=== PATIENT | female | born 2000 | race Hispanic/Latino ===

== ENCOUNTER → 2022-01-30 17:04 | Outpatient (CLI) | payer OTHER, MEDICAID, SELFPAY ==
[2022-01-31 13:24] LABS: Varicella IgG Antibody 312 index (Immune >165)
[2022-02-02 13:10] LABS: AFP Value 59.7 ng/mL (.); Gest Age on Col Date 18.4 weeks (.); Gestational Age EDD (.); Insulin Dep Diabetes No (.); OSBR Risk 1IN 7137 (.); Results Report (.); Test Results *Screen Negative* (.)
== END ==
PROVIDERS: Referring Provider Obstetrics & Gynecology; Visit Provider Obstetrics & Gynecology
DX: Z34.02 Encounter for supervision of normal first pregnancy, second trimester (principal); Z3A.18 18 weeks gestation of pregnancy
CPT/HCPCS: 36415; 82105; 86787

== ENCOUNTER → 2022-02-13 10:44 | Outpatient (CLI) | payer OTHER, MEDICAID, SELFPAY ==
--- NOTE | 2022-02-13 10:46 | DI.US.S_ITS ---
PROCEDURE: US OB >= 14 WEEKS FETUS INDICATIONS: 20 WEEK ANATOMY SCAN OUTSIDE/PRIOR DATING DATA: Last menstrual period (LMP): Unknown LMP-based estimated date of delivery (DAX): Unknown. First dating scan (date and location): 02/13/2022. Estimated date of delivery (DAX) from first dating scan: 06/29/2022. TECHNIQUE: Real-time scanning was performed of the fetus, with image documentation and biometric measurements. Endovaginal scanning: Non COMPARISON: [facility], , US OB >= 14 WEEKS FETUS, 01/02/2022, 11:33. FINDINGS: General: A single living intrauterine gestation is present. Presentation: Cephalic. Placenta: Placental position is posterior , without previa. Amniotic fluid index: 13.4 cm, normal range is 5-24 cm. heart rate: 152 beats per minute. Maternal cervical canal: 4.4 cm long. Normal lower limit is 2.5 cm. biometrics: Biparietal diameter: 5.0 cm, 21 week 0 day Head circumference: 18.4 cm, 20 week 5 day Abdominal circumference: 15.2 cm, 20 week 3 day Femur length: 3.3 cm, 20 week 2 day Clinically estimated gestational age: Unknown Composite gestational age from present scan: 20 week 4 day Estimated weight and percentile: 352 g Anatomic survey: Neuro: Ventricles are non-dilated at less than 10 mm. Cisterna magna is normal at 3-11 mm. Cerebellum is normal in size and morphology. Nuchal skin fold: Normal at less than 6 mm between 14-21 weeks gestational age. Face: Not well visualized Spine: No evidence for spina bifida. Heart: 4-chambered heart is present, with normal ventricular outflow tracts. Diaphragm: Diaphragm is intact. Stomach: Left-sided stomach is present. Kidneys: No hydronephrosis. Normal is less than 5 mm in 2nd trimester, less than 7 mm in 3rd trimester. Cord: 3-vessel cord has orthotopic insertion. Bladder: Normal in size. Extremities: All 4 extremities identified. IMPRESSION: Single live intrauterine consistent with a 20 week 4 day gestation. face, nose and lips not well visualized due to patient positioning. Approved by: Kaushal Infante M.D. on 02/13/2022 at 16:49
== END ==
PROVIDERS: Referring Provider Obstetrics & Gynecology; Visit Provider Obstetrics & Gynecology
DX: Z34.02 Encounter for supervision of normal first pregnancy, second trimester (principal); Z3A.20 20 weeks gestation of pregnancy
CPT/HCPCS: 76811

== ENCOUNTER → 2022-02-27 07:21 | Outpatient (CLI) | payer OTHER, MEDICAID, SELFPAY | PROVIDERS: Visit Provider Obstetrics & Gynecology | DX: Z34.00 Encounter for supervision of normal first pregnancy, unspecified trimester (principal) | CPT/HCPCS: 87086 ==

== ENCOUNTER → 2022-03-10 07:17 | Outpatient (CLI) | payer OTHER, MEDICAID, SELFPAY ==
--- NOTE | 2022-03-10 07:19 | DI.US.S_ITS ---
PROCEDURE: US OB FOLLOW UP INDICATIONS: F/U Face OUTSIDE/PRIOR DATING DATA: Last menstrual period (LMP): Unknown LMP-based estimated date of delivery (DAX): Unknown. First dating scan (date and location): 02/13/2022. Estimated date of delivery (DAX) from first dating scan: 20 weeks 4 days. The calculations are made using the ultrasound DAX of 06/29/2022. TECHNIQUE: Real-time scanning was performed of the fetus, with image documentation and biometric measurements. COMPARISON: None. FINDINGS: General: A single living intrauterine gestation is present. Presentation: Cephalic. Placenta: Placental position is posterior , without previa. Amniotic fluid index: 11.6 cm, normal range is 5-24 cm. heart rate: 165 beats per minute. Maternal cervical canal: 4.0 cm long. Normal lower limit is 2.5 cm. biometrics: Biparietal diameter: 6.5 cm. 26 weeks 1 day Head circumference: 22.9 cm. 24 weeks 6 days Abdominal circumference: 19.5 cm. 24 weeks 1 day Femur length: 4.3 cm. 24 weeks 1 day Gestational Age by initial ultrasound: 24 weeks 0 days Composite gestational age from present scan: 24 weeks 6 days Estimated weight and percentile: 687 g. 58th percentile. Anatomic survey: Face: Nose and lips, facial profile are normal. Heart: 4-chambered heart is present Stomach: Left-sided stomach is present. IMPRESSION: 1. Completion of anatomy with normal anatomy demonstrated. 2. Estimated gestational age 20 weeks 4 days from initial scan. We strive to produce accurate, complete, and clear reports of imaging services. To assist us in improving patient care, this report was composed using standard report templates and voice recognition software. Therefore, it may contain abnormal punctuation, insertions and/or omissions. Occasional wrong-word or sound-alike substitutions may occur. Though we review the report and make efforts to correct it, we do recommend that the report be read carefully in proper context to recognize any text inaccuracies. Dictated by: Ari Clement M.D. on 03/10/2022 at 8:28 Approved by: Ari Clement M.D. on 03/10/2022 at 8:32
== END ==
PROVIDERS: PCP Internal Medicine; Referring Provider Obstetrics & Gynecology; Visit Provider Obstetrics & Gynecology
DX: Z3A.24 24 weeks gestation of pregnancy; Z36.2 Encounter for other antenatal screening follow-up
CPT/HCPCS: 76816

== ENCOUNTER → 2022-04-07 08:25 | Outpatient (CLI) | payer OTHER, MEDICAID, SELFPAY ==
[2022-04-07 11:28] LABS: Hematocrit 37.2 % (36-46); Hemoglobin 12.6 g/dL (12.0-16.0)
[2022-04-07 11:33] LABS: GTT (PREG) 1 Hour PP 50gm Dose 122 mg/dL (76-139)
== END ==
PROVIDERS: PCP Internal Medicine; Referring Provider Obstetrics & Gynecology; Visit Provider Obstetrics & Gynecology
DX: Z34.02 Encounter for supervision of normal first pregnancy, second trimester (principal); Z3A.26 26 weeks gestation of pregnancy
CPT/HCPCS: 36415; 82950; 85014; 85018

== ENCOUNTER → 2022-05-28 15:10 | Outpatient (CLI) | payer OTHER, MEDICAID, SELFPAY ==
[2022-05-28 16:52] LABS: Add Manual Diff / Slide Review NO; Basophils Absolute Auto 0 /uL (0-100); Basophils Percent Auto 0.5 % (0-2); Eosinophils Absolute Auto 100 /uL (0-450); Eosinophils Percent Auto 0.8 % (2-4); Hematocrit 37.2 % (36-46); Hemoglobin 12.5 g/dL (12.0-16.0); Lymphocytes Absolute Auto 1700 /uL (1100-4500); Lymphocytes Percent Auto 19.3 % (25-40); Mean Corpuscular HGB Conc 33.8 % (30-36); Mean Corpuscular Hemoglobin 29.4 PG (26-34); Mean Corpuscular Volume 87.1 fL (80-100); Monocytes Absolute Auto 700 /uL (0-900); Neutrophils Absolute Auto 6200 /uL (1500-7000); Neutrophils Percent Auto 71.4 % (50-75); Platelet Count 199 X10^3/uL (150-400); Red Blood Cell Count 4.26 X10^6/uL (4.0-5.2); Red Cell Distribution Width 13.8 % (11.6-14.8); White Blood Cell Count 8.7 X10^3/uL (4.5-11.0)
[2022-05-28 17:17] LABS: Alanine Aminotransferase 15 IU/L (<35); Aspartate Aminotransferase 27 IU/L (14-36); BUN Creatinine Ratio 15.6 (6-22); Blood Urea Nitrogen 7 mg/dL (7-17); Estimated Glomerular Filt Rate > 60 mL/min (>60); Uric Acid 4.8 mg/dL (2.5-6.2)
[2022-05-28 19:00] LABS: Protein (Total) Urine Random 11 mg/dL (0-12); Protein Creatinine Ratio Urine 0.17 GRAM/24H
== END ==
PROVIDERS: PCP Internal Medicine; Referring Provider Obstetrics & Gynecology; Visit Provider Obstetrics & Gynecology
DX: O16.3 Unspecified maternal hypertension, third trimester (principal); O99.891 Other specified diseases and conditions complicating pregnancy; R82.998 Other abnormal findings in urine; Z3A.35 35 weeks gestation of pregnancy
CPT/HCPCS: 36415; 82565; 82570; 84156; 84450; 84460; 84520; 84550; 85025; 87086

== ENCOUNTER 2022-05-28 16:07 | Observation (INO) | payer OTHER, MEDICAID, SELFPAY ==
--- NOTE | 2022-05-28 18:07 | P.TNLD_ITS ---
Visit Information Visit Information Date of evaluation: 05/28/22 Primary OB Provider: Heriberto Arambula On-call OB Provider: Fidelia Brandon Reason for Evaluation: Yes non-stress test and Yes other Comments/Additional reasons for admission: 21 yo G1 sent from the office for a nonstress test due to mildly elevated BP in the office at her routine 35 week visit. EGA 35wk2d. Initial elevated DBP. BP 114/90, then repeats: 138/84, 122/82, 142/88. Her normal BPS are 100s-110's/60s. She feels well, not having any symptoms. Denies headache, scotomata, vision changes, persistent nausea or upper abdominal pain. She did have some nausea last week which resolved. She has noted some pedal edema. Not noting any and edema. Office urinalysis: Negative protein. Urine protein/creatinine ratio from office is pending. Vital Signs Vital Signs: BP here 135/65, 116/67, 106/67. [facility] Medical History (Updated 05/28/22 @ 21:34 by Fidelia Brandon MD) Allergic rhinitis Anxiety Asthma Depression Migraine UTI (urinary tract infection) Surgical History (Updated 01/14/22 @ 19:11 by Keeley Lancaster) Anesthesia History of appendectomy Family History (Updated 12/22/21 @ 10:09 by Lilly Gates RN) Grandmother Diabetes mellitus Social History marital status: unmarried,living together (engaged) number of children: 0 household members: significant other and family (mother, step father and sibs) lives independently: Yes housing: other (Trailer) pets and animals: No education level: college (1st year) occupational status: employed and student current occupational exposures/hazards: No special luis f needs: No seatbelt use: always water heater temp set < 120 deg: Yes (will check) working smoke detector in home: Yes fire extinguisher in home: No carbon monox detector in home: No firearms in home: No do you feel safe at home: Yes Smoking Status: Never smoker second hand exposure: No alcohol intake: never substance use type: does not use during the past year weight has: remained stable well-balanced diet: about half the time (trying to improve, low weight gain) daily servings fruits/ve-1 caffeine: Yes (limit of 200mg) Type(s) of exercise: walking Exam Vital Signs (past 8 hours): BP here 135/65, 116/67, 106/67 Narrative Exam Narrative: General: Well-appearing female in no acute distress Abdomen: Gravid, nontender. No right upper quadrant or epigastric tenderness. Extremities: Mild pedal edema. No noted hand finger edema. DTR: Patellar reflex 1+ Evaluation Evaluation Baseline heart rate: 135 Variability: Moderate (11-25) monitor accelerations: Present Monitor Decelerations: Absent Category of Tracing: Reactive Non-invasive Membranes Rupture Test: negative Diagnosis, Plan/Disposition Final Diagnosis (1) Elevated BP without diagnosis of hypertension: Status: Acute Plan/Disposition Plan: 21 yo G1 @35wk2d with an initial elevated DBP of 90 in office today, 112/90. See HPI. After few repeat BP's, she then had an elevated systolic BP 142, she was getting nervous at that time, since also called back to the office to rechec k her BP. Initial SBP here is mildly elevated for her, BP 135/65, then normal BP's 106- 116/67. -Sent here for NST. NST is reactive and reassuring. Preeclamptic labs are normal: Platelets 199, creatinine 0.45, AST and ALT normal. -Urine protein/creatinine ratio pending urine sample collection from office. She had just voided here so would be a while before she could go again. Will not have her wait for that result since will not change management administrator overnight. Plan: Follow up in office on or Saturday, 3-4 days for a BP check. Call earlier as needed. OB Disposition: home
== END 2022-05-28 18:02 | disposition home or self-care (01) ==
LOC: LABOR 16:10
PROVIDERS: Admitting Provider Obstetrics & Gynecology; PCP Internal Medicine; Referring Provider Obstetrics & Gynecology; Visit Provider Obstetrics & Gynecology
DX: O16.3 Unspecified maternal hypertension, third trimester (principal); O99.891 Other specified diseases and conditions complicating pregnancy; R82.998 Other abnormal findings in urine; Z3A.35 35 weeks gestation of pregnancy
CPT/HCPCS: 36415; 59025; 59050; 82565; 82570; 84156; 84450; 84460; 84520; 84550; 85025; 87086; G0378; G0379

== ENCOUNTER 2022-05-30 12:59 | Outpatient (CLI) | payer OTHER, MEDICAID, SELFPAY | END 2022-05-30 13:35 | disposition home or self-care (01) | LOC: LABOR 13:08 → OB 06-04 11:45 | PROVIDERS: PCP Internal Medicine; Referring Provider Obstetrics & Gynecology; Visit Provider Obstetrics & Gynecology | DX: O47.03 False labor before 37 completed weeks of gestation, third trimester (principal); Z3A.35 35 weeks gestation of pregnancy; Z34.03 Encounter for supervision of normal first pregnancy, third trimester | CPT/HCPCS: 59025; 87653; G0378; G0379 ==

== ENCOUNTER → 2022-05-30 14:19 | Outpatient (CLI) | payer OTHER, MEDICAID, SELFPAY ==
[2022-05-31 16:56] LABS: Strep Grp B PCR POS for Grp B Strep
== END ==
PROVIDERS: PCP Internal Medicine; Visit Provider Obstetrics & Gynecology
DX: Z34.03 Encounter for supervision of normal first pregnancy, third trimester (principal); Z3A.35 35 weeks gestation of pregnancy
CPT/HCPCS: 87653

== ENCOUNTER → 2022-06-01 15:42 | Outpatient (CLI) | payer OTHER, MEDICAID, SELFPAY ==
[2022-06-01 16:35] LABS: Protein (Total) Urine Random 14 mg/dL (0-12); Protein Creatinine Ratio Urine 0.04 GRAM/24H
[2022-06-01 17:31] LABS: Add Manual Diff / Slide Review NO; Basophils Absolute Auto 0 /uL (0-100); Basophils Percent Auto 0.3 % (0-2); Eosinophils Absolute Auto 100 /uL (0-450); Eosinophils Percent Auto 1.2 % (2-4); Hematocrit 34.8 % (36-46); Hemoglobin 12.1 g/dL (12.0-16.0); Lymphocytes Absolute Auto 1500 /uL (1100-4500); Lymphocytes Percent Auto 22.4 % (25-40); Mean Corpuscular HGB Conc 34.8 % (30-36); Mean Corpuscular Volume 86.3 fL (80-100); Monocytes Absolute Auto 500 /uL (0-900); Monocytes Percent Auto 8.2 % (3-14); Neutrophils Absolute Auto 4500 /uL (1500-7000); Neutrophils Percent Auto 67.9 % (50-75); Platelet Count 184 X10^3/uL (150-400); Red Blood Cell Count 4.03 X10^6/uL (4.0-5.2); Red Cell Distribution Width 13.8 % (11.6-14.8); White Blood Cell Count 6.6 X10^3/uL (4.5-11.0)
[2022-06-01 17:45] LABS: Alanine Aminotransferase 19 IU/L (<35); Albumin 3.1 g/dL (3.5-5.0); Alkaline Phosphatase 196 U/L (38-126); Aspartate Aminotransferase 28 IU/L (14-36); BUN Creatinine Ratio 13.2 (6-22); Bilirubin Total 0.2 mg/dL (0.2-1.3); Blood Urea Nitrogen 7 mg/dL (7-17); Calcium 8.7 mg/dL (8.4-10.2); Carbon Dioxide 20 mmol/L (22-32); Chloride 103 mmol/L (98-107); Estimated Glomerular Filt Rate > 60 mL/min (>60); Glucose 110 mg/dL (70-100); HEMOLYSIS < 15 (0-50); Potassium 3.8 mmol/L (3.4-5.1); Sodium 135 mmol/L (137-145); Total Protein 6.1 g/dL (6.3-8.2); Uric Acid 5.5 mg/dL (2.5-6.2)
== END ==
PROVIDERS: PCP Internal Medicine; Referring Provider Obstetrics & Gynecology; Visit Provider Obstetrics & Gynecology
DX: O13.9 Gestational [pregnancy-induced] hypertension without significant proteinuria, unspecified trimester (principal)
CPT/HCPCS: 36415; 80053; 82570; 84156; 84550; 85025; 87086

== ENCOUNTER → 2022-06-07 12:30 | Outpatient (CLI) | payer OTHER, MEDICAID, SELFPAY ==
[2022-06-07 17:36] LABS: Creatinine Urine Random 176.5 mg/dL; Protein (Total) Urine Random 189 mg/dL (0-12); Protein Creatinine Ratio Urine 1.07 GRAM/24H
== END ==
PROVIDERS: PCP Internal Medicine; Visit Provider Physician Assistant Medical
DX: Z34.03 Encounter for supervision of normal first pregnancy, third trimester (principal); R80.9 Proteinuria, unspecified; Z3A.36 36 weeks gestation of pregnancy
CPT/HCPCS: 82570; 84156

== ENCOUNTER 2022-06-09 16:34 | Inpatient (IN) | payer OTHER, MEDICAID, SELFPAY ==
[2022-06-09 16:40] VITALS: BP 146/91
[2022-06-09 17:33] LABS: Add Manual Diff / Slide Review NO; Basophils Absolute Auto 0 /uL (0-100); Basophils Percent Auto 0.3 % (0-2); Eosinophils Absolute Auto 100 /uL (0-450); Eosinophils Percent Auto 1.2 % (2-4); Hematocrit 34.1 % (36-46); Hemoglobin 11.7 g/dL (12.0-16.0); Lymphocytes Absolute Auto 1900 /uL (1100-4500); Lymphocytes Percent Auto 24.3 % (25-40); Mean Corpuscular HGB Conc 34.2 % (30-36); Mean Corpuscular Hemoglobin 29.7 PG (26-34); Mean Corpuscular Volume 86.9 fL (80-100); Monocytes Absolute Auto 600 /uL (0-900); Monocytes Percent Auto 7.3 % (3-14); Neutrophils Absolute Auto 5100 /uL (1500-7000); Neutrophils Percent Auto 66.9 % (50-75); Platelet Count 162 X10^3/uL (150-400); Red Blood Cell Count 3.92 X10^6/uL (4.0-5.2); Red Cell Distribution Width 14.3 % (11.6-14.8); White Blood Cell Count 7.7 X10^3/uL (4.5-11.0)
[2022-06-09 17:41] LABS: Alanine Aminotransferase 17 IU/L (<35); Albumin 2.8 g/dL (3.5-5.0); Alkaline Phosphatase 184 U/L (38-126); Aspartate Aminotransferase 24 IU/L (14-36); Bilirubin Total 0.2 mg/dL (0.2-1.3); Bilirubin Unconjugated 0.3 mg/dL (0.0-1.1); Globulin 2.9 g/dL (1.7-4.1); HEMOLYSIS < 15 (0-50); Total Protein 5.7 g/dL (6.3-8.2); Uric Acid 5.8 mg/dL (2.5-6.2)
[2022-06-09 17:47] LABS: Creatinine Urine Random 95.8 mg/dL
[2022-06-09 18:11] LABS: Protein (Total) Urine Random 790 mg/dL (0-12); Protein Creatinine Ratio Urine 8.24 GRAM/24H
[2022-06-09 20:07] LABS: Add Manual Diff / Slide Review NO; Basophils Absolute Auto 0 /uL (0-100); Basophils Percent Auto 0.4 % (0-2); Eosinophils Absolute Auto 100 /uL (0-450); Eosinophils Percent Auto 0.9 % (2-4); Hematocrit 36.9 % (36-46); Hemoglobin 12.3 g/dL (12.0-16.0); Lymphocytes Absolute Auto 2000 /uL (1100-4500); Lymphocytes Percent Auto 23.9 % (25-40); Mean Corpuscular HGB Conc 33.4 % (30-36); Mean Corpuscular Hemoglobin 29.4 PG (26-34); Mean Corpuscular Volume 88.1 fL (80-100); Monocytes Absolute Auto 700 /uL (0-900); Monocytes Percent Auto 8.2 % (3-14); Neutrophils Absolute Auto 5600 /uL (1500-7000); Neutrophils Percent Auto 66.6 % (50-75); Platelet Count 183 X10^3/uL (150-400); Red Blood Cell Count 4.19 X10^6/uL (4.0-5.2); Red Cell Distribution Width 14.4 % (11.6-14.8); White Blood Cell Count 8.4 X10^3/uL (4.5-11.0)
--- NOTE | 2022-06-09 20:19 | P.HPOB_ITS ---
OB HPI Date/Time Date of admission: 06/09/22 Date Patient Seen: 06/09/22 Time Patient Seen: 18:00 History of Present Condition Chief complaint: preeclampsia : 1 Para: 0 Estimated Date of Delivery: 06/30/22 Estimated Gestational Age (weeks): 37 Narrative: Diony Carroll is a 21 year old female. Recent onset of significant proteinuria. Today elevated BP (165/99). Denies QUILES, visual change, epigastric pain. Does have significant lower extremity edema. Indications Indication for induction OB: gestational HTN/pre-eclampsia History of Present care: good care Dating criteria: based on 1st trimester US only Preadmission Labs Blood type: O (+) positive -: Antibody screen: negative, GBS status: positive and HBsAG: negative -: Rubella: immune Evaluation Evaluation Baseline heart rate: 140 Status: Category l Dilation: 1-2 cm [facility] Medical History Allergic rhinitis Anxiety Asthma Depression Migraine UTI (urinary tract infection) Surgical History Anesthesia History of appendectomy Family History Grandmother Diabetes mellitus Social History marital status: unmarried,living together number of children: 0 household members: significant other and family lives independently: Yes housing: other pets and animals: No education level: college occupational status: employed and student current occupational exposures/hazards: No special luis f needs: No seatbelt use: always water heater temp set < 120 deg: Yes (will check) working smoke detector in home: Yes fire extinguisher in home: No carbon monox detector in home: No firearms in home: No do you feel safe at home: Yes Smoking Status: Never smoker second hand exposure: No alcohol intake: never substance use type: does not use during the past year weight has: remained stable well-balanced diet: about half the time daily servings fruits/ve-1 caffeine: Yes (limit of 200mg) Type(s) of exercise: walking Meds Home Medications and Allergies Home Medications Medication Instructions Recorded Confirmed Type prenat.vits,piero,[id number] 1 tab PO DAILY 12/22/21 06/01/22 History Allergies Allergy/AdvReac Type Severity Reaction Status Date / Time No Known Drug Allergies Allergy Unverified 06/01/22 14:53 Review of Systems Review of Systems ROS: Yes All systems reviewed with the patient and are negative except as otherwise documented OB Exam [facility] Head: normal to inspection Resp Effort & Inspection: normal respiratory effort Cardio Rate: regular rate Rhythm: regular rhythm Extremities Lower extremity: Yes edema Laterality: bilateral edema degree: 3+ DTR's: Rt Patellar: 1+ and Lt Patellar: 2+ GI Inspection: normal to inspection Presentation: vertex (by bedside ultrasound) Estimated Weight (lbs): 6 Objective Labs Result Diagrams: 06/09/22 19:00 Labs: Laboratory Results - last 24 hr 06/09/22 06/09/22 06/09/22 17:15 17:15 17:15 WBC 7.7 RBC 3.92 L Hgb 11.7 L Hct 34.1 L MCV 86.9 MCH 29.7 MCHC 34.2 RDW 14.3 Plt Count 162 Neut % (Auto) 66.9 Lymph % (Auto) 24.3 L Walsh % (Auto) 7.3 Eos % (Auto) 1.2 L Baso % (Auto) 0.3 Neut # (Auto) 5100 Lymph # (Auto) 1900 Walsh # (Auto) 600 Eos # (Auto) 100 Baso # (Auto) 0 Uric Acid 5.8 Total Bilirubin 0.2 Conjugated Bilirubin 0.0 Unconjugated Bilirubin 0.3 AST 24 ALT 17 Alkaline Phosphatase 184 H Total Protein 5.7 L Albumin 2.8 L Globulin 2.9 Albumin/Globulin Ratio 1.0 U Random Total Protein 790 H Urine Creatinine 95.8 Protein/Creatinin Ratio 8.24 06/09/22 19:00 WBC 8.4 RBC 4.19 Hgb 12.3 Hct 36.9 MCV 88.1 MCH 29.4 MCHC 33.4 RDW 14.4 Plt Count 183 Neut % (Auto) 66.6 Lymph % (Auto) 23.9 L Walsh % (Auto) 8.2 Eos % (Auto) 0.9 L Baso % (Auto) 0.4 Neut # (Auto) 5600 Lymph # (Auto) 2000 Walsh # (Auto) 700 Eos # (Auto) 100 Baso # (Auto) 0 Uric Acid Total Bilirubin Conjugated Bilirubin Unconjugated Bilirubin AST ALT Alkaline Phosphatase Total Protein Albumin Globulin Albumin/Globulin Ratio U Random Total Protein Urine Creatinine Protein/Creatinin Ratio Assessment and Plan Assessment and Plan Assessment and Plan narrative: 1) Pre-eclampsia with significant BP elevation and proteinuria. Advised to proceed with induction. Will begin oral labetalol and use IV labetalol / hydralazine as needed. 2) +GBS - Vicki prophylaxis once in labor 3) Unfavorable cervix - plan to begin induction with cervical ripening Time Spent with Patient Total time spent with greater than 50% in coordination of care (as documented) at patient's floor/unit and/or counseling patient:: 25 - 35 minutes
[2022-06-09 20:30] LABS: COVID19 -Nasal RAPID Negative (Negative)
[2022-06-09] MEDS: LABETALOL 100 MG TABLET PO (21:01)
[2022-06-10] MEDS: LABETALOL 20 MG/4 ML SYRINGE IV (06:25)
[2022-06-10] MEDS: DINOPROSTONE VAG (CERVIDIL) 10 MG VAG (06:55)
[2022-06-10 08:31] VITALS: BP 163/99; PULSE 83
[2022-06-10] MEDS: LABETALOL 100 MG TABLET PO ×2 (08:31→20:59)
--- NOTE | 2022-06-10 08:45 | PM.OBPNLAB ---
Date/Time Date Patient Seen: 06/10/22 Time Patient Seen: 08:46 Pain Control Comments: Denies QUILES, visual change, epigastric pain BP range 129/81 - 174/98 Status status: Category l Heart Rate Baseline: 140 Assessment and Plan Assessment: induction ongoing (1) Pre-eclampsia - one episode of elevated BP requiring IV labetalol; continuing po anti-hypertensive; will repeat labs. 2) Induction - cervidil placed about 0700; not feeling any uterine ctx. 3) +GBS - anticipate Vicki prophylaxis. 4) Pain control - anticipate epidural. 5) Tracing reassuring)
[2022-06-10] MEDS: NIFEdipine 30 MG TAB ER PO (08:57)
--- NOTE | 2022-06-10 12:57 | PM.OBPNLAB ---
Date/Time Date Patient Seen: 06/10/22 Time Patient Seen: 12:57 Pain Control Comments: feeling mild cramping 130/80 - 150/97, 77, 97.8 Pelvic Exam Comments: deferred Contractions Contractions on admission: none (with couplets q 3-4') Contraction pattern: Irregular (couplets q 3-4 min) Contraction intensity: Mild Status status: Category l (occas variable) Assessment and Plan Assessment: induction ongoing Comments: 1) Pre-eclampsia - BP improved with po nifedipine. Labs pending. 2) Induction - good response to cervidil. Check cervix at 1900. 3) +GBS - Begin Vicki when cervical change documented 4) Plans epidural 5) Tracing reassuring 6) Anticipate
[2022-06-10 14:14] LABS: Add Manual Diff / Slide Review NO; Basophils Absolute Auto 0 /uL (0-100); Basophils Percent Auto 0.6 % (0-2); Eosinophils Absolute Auto 100 /uL (0-450); Eosinophils Percent Auto 1.3 % (2-4); Hematocrit 33.3 % (36-46); Hemoglobin 11.5 g/dL (12.0-16.0); Lymphocytes Absolute Auto 1500 /uL (1100-4500); Lymphocytes Percent Auto 22.8 % (25-40); Mean Corpuscular HGB Conc 34.4 % (30-36); Mean Corpuscular Hemoglobin 29.7 PG (26-34); Mean Corpuscular Volume 86.4 fL (80-100); Monocytes Absolute Auto 700 /uL (0-900); Monocytes Percent Auto 10.3 % (3-14); Neutrophils Absolute Auto 4100 /uL (1500-7000); Platelet Count 162 X10^3/uL (150-400); Red Blood Cell Count 3.86 X10^6/uL (4.0-5.2); Red Cell Distribution Width 14.2 % (11.6-14.8); White Blood Cell Count 6.4 X10^3/uL (4.5-11.0)
[2022-06-10 14:43] LABS: Alanine Aminotransferase 19 IU/L (<35); Albumin 2.8 g/dL (3.5-5.0); Alkaline Phosphatase 179 U/L (38-126); Aspartate Aminotransferase 30 IU/L (14-36); BUN Creatinine Ratio 16.1 (6-22); Blood Urea Nitrogen 9 mg/dL (7-17); Calcium 8.5 mg/dL (8.4-10.2); Carbon Dioxide 22 mmol/L (22-32); Chloride 104 mmol/L (98-107); Estimated Glomerular Filt Rate > 60 mL/min (>60); Globulin 2.9 g/dL (1.7-4.1); Glucose 93 mg/dL (70-100); HEMOLYSIS < 15 (0-50); Potassium 4.1 mmol/L (3.4-5.1); Sodium 136 mmol/L (137-145); Total Protein 5.7 g/dL (6.3-8.2)
[2022-06-10 14:55] LABS: Bilirubin Total 0.1 mg/dL (0.2-1.3)
--- NOTE | 2022-06-10 19:08 | PM.OBPNLAB ---
Date/Time Date Patient Seen: 06/10/22 Time Patient Seen: 19:08 Pain Control Comments: rating ctx pain 3-4/10 Pelvic Exam Dilation (cm): 2 Effacement (%): 60 station: -3 Amniotic membrane status: Intact Comments: posterior, moderate consistency Contractions Contraction pattern: Regular ( q 2-3 min) Contraction intensity: Mild Status status: Category l (occas variable) Assessment and Plan Assessment: induction ongoing (cervidil pulled) Plan: begin patient augmentation (low dose pitocin) Comments: 1) Induction - s/p cervidil, now begin pitocin 2) Pre-eclampsia - no sx, BP on nifedipine (121/69-142/92), repeat labs with nl LFT, nl plt 3) +GBS - begin Vicki when cervical change occurs 4) Anticipate epidural 5) Tracing reassuring 6) Covid negative
[2022-06-10] MEDS: LACTATED RINGERS 1,000 ML 100 ML IV (19:39)
[2022-06-10] MEDS: OXYTOCIN PREMIX 30 UNIT/500 ML PLAST..BAG IV (20:07)
[2022-06-10 20:59] VITALS: BP 141/96; PULSE 70
--- NOTE | 2022-06-10 22:06 | PM.OBPNLAB ---
Date/Time Date Patient Seen: 06/10/22 Time Patient Seen: 22:06 Pain Control Pain control: tolerating well (-states ctx pain is 5/10) Pelvic Exam Effacement (%): 60 station: -3 Amniotic membrane status: Intact Comments: exam deferred Contractions Pitocin rate (mU/min): 3 Contraction frequency (min): 7 Contraction pattern: Regular ( q 2-3 min) Contraction intensity: Mild Status status: Category l (occas variable) Assessment and Plan Assessment: induction ongoing Plan: continuous present management Comments: 1) Pre-eclampsia - last BP 131/82, on labetalol and nifedipine 2) Induction - now on low dose pitocin, continue to increase 3) Pain management - reviewed when to request epidural 4) Tracing reassuring 5) Anticipate
--- NOTE | 2022-06-11 01:00 | PM.OBPNLAB ---
Date/Time Date Patient Seen: 06/11/22 Time Patient Seen: 01:01 Pain Control Comments: sleeping Pelvic Exam Effacement (%): 60 station: -3 Amniotic membrane status: Intact Comments: exam deferred Contractions Pitocin rate (mU/min): 8 Contraction frequency (min): 4 Contraction pattern: Regular ( q 2-3 min) Contraction intensity: Mild Status status: Category l (occas variable) Assessment and Plan Assessment: induction ongoing Plan: continuous present management Comments: 1) Preeclampsia - last BP 154/92; will repeat labs; continue nifedipine and labetalol 2) Induction - good ctx pattern but pt sleeping; continue to increase 3) +GBS - awaiting start of Vicki (anticipating at least two doses) 4) Tracing reassuring 5) Anticipate epidural 6) Anticipate
[2022-06-11] MEDS: LACTATED RINGERS 1,000 ML 100 ML IV (04:07)
--- NOTE | 2022-06-11 04:10 | PM.OBPNLAB ---
Date/Time Date Patient Seen: 06/11/22 Time Patient Seen: 04:10 Pain Control Pain control: tolerating well (sleeping intermittently) Pelvic Exam Amniotic membrane status: Intact Comments: deferred Contractions Pitocin rate (mU/min): 15 Contraction frequency (min): 2 Contraction pattern: Regular ( q 2-3 min) Contraction intensity: Mild Status status: Category l (occas variable) Comments: Tracing reassuring Assessment and Plan Assessment: induction ongoing Plan: continuous present management (1) Pre-eclampsia without sx - BP 149/88 on nifedipine and labetalol 2) Induction - pitocin not yet producing strong contractions; ck cervix at 0700 3) +GBS - begin Vicki when cervical change documented)
[2022-06-11 06:48] LABS: Add Manual Diff / Slide Review NO; Basophils Absolute Auto 0 /uL (0-100); Basophils Percent Auto 0.4 % (0-2); Eosinophils Absolute Auto 100 /uL (0-450); Eosinophils Percent Auto 1.6 % (2-4); Hematocrit 34.1 % (36-46); Hemoglobin 11.7 g/dL (12.0-16.0); Lymphocytes Absolute Auto 2000 /uL (1100-4500); Lymphocytes Percent Auto 21.7 % (25-40); Mean Corpuscular HGB Conc 34.3 % (30-36); Mean Corpuscular Hemoglobin 29.5 PG (26-34); Mean Corpuscular Volume 86.1 fL (80-100); Monocytes Absolute Auto 600 /uL (0-900); Monocytes Percent Auto 5.9 % (3-14); Neutrophils Absolute Auto 6600 /uL (1500-7000); Neutrophils Percent Auto 70.4 % (50-75); Platelet Count 148 X10^3/uL (150-400); Red Blood Cell Count 3.96 X10^6/uL (4.0-5.2); Red Cell Distribution Width 14.5 % (11.6-14.8); White Blood Cell Count 9.4 X10^3/uL (4.5-11.0)
[2022-06-11 06:57] LABS: Alanine Aminotransferase 20 IU/L (<35); Albumin 2.7 g/dL (3.5-5.0); Alkaline Phosphatase 179 U/L (38-126); Aspartate Aminotransferase 32 IU/L (14-36); BUN Creatinine Ratio 14.6 (6-22); Bilirubin Total 0.2 mg/dL (0.2-1.3); Blood Urea Nitrogen 7 mg/dL (7-17); Carbon Dioxide 23 mmol/L (22-32); Chloride 105 mmol/L (98-107); Estimated Glomerular Filt Rate > 60 mL/min (>60); Globulin 2.8 g/dL (1.7-4.1); Glucose 74 mg/dL (70-100); HEMOLYSIS < 15 (0-50); Potassium 3.7 mmol/L (3.4-5.1); Sodium 134 mmol/L (137-145); Total Protein 5.5 g/dL (6.3-8.2)
--- NOTE | 2022-06-11 07:06 | PM.OBPNLAB ---
Date/Time Date Patient Seen: 06/11/22 Time Patient Seen: 07:06 Pain Control Pain control: tolerating well Comments: still sleeping intermittently Pelvic Exam Dilation (cm): 2 Effacement (%): 70 station: -2 Amniotic membrane status: Intact (soft and anterior) Contractions Pitocin rate (mU/min): 15 Contraction frequency (min): 2 Contraction pattern: Regular ( q 2-3 min) Contraction intensity: Mild Status status: Category l (occas variable) Assessment and Plan Assessment: induction ongoing Plan: continuous present management Comments: 1) Pre-eclampsia - BP 143/95 on nifedipine and labetalol (no treatable BP overnight); denies sx; nl reflexes - 2) Induction - slow progress; discussed AROM +/- epidural possibility 3) +GBS - begin Vicki 4) Tracing reassuring 5) Anticipate
[2022-06-11] MEDS: PENICILLIN G POTASSIUM 5,000,000 UNIT in DEXTROSE 5% IN WATER 250 ML 250 UNIT IV (08:00)
[2022-06-11 09:08] VITALS: BP 142/64; PULSE 89
[2022-06-11] MEDS: LABETALOL 100 MG TABLET PO ×3 (09:08→21:59)
--- NOTE | 2022-06-11 12:43 | PM.OBPNLAB ---
Date/Time Date Patient Seen: 06/11/22 Time Patient Seen: 12:30 Pain Control Pain control: tolerating well Comments: Patient seen by me at 8:00 a.m. and now again at 12:30 p.m.. 22 yo G1 admitted on 10 pm @ 37 weeks for IOL for preeclampsia. History and physical reviewed. Pt had had some borderline BP's at her recent office visits, with normal preeclamptic labs. Subsequently she was noted to have significant proteinuria. She was monitoring BP's at home and had an elevation to 165/99. She was brought in to L&D and BP elevated to 146/91. Patient had also recently noted pedal edema. She was admitted for induction of labor. Induction labor was started with Cervidil for cervical ripening yesterday morning 06/10. Last night Cervidil removed and Pitocin started. Patient is on 15 milliunits Pitocin currently, she reports just starting to notice some mildly uncomfortable contractions. Exam this a.m. by Dr. Mccartney was 2cm/70%. Her penicillin was started for GBS prophylaxis this morning. Denies leakage of fluid or vaginal bleeding. Feeling good movement. Until now has been uncomplicated. She did test positive for COVID at 24 weeks. Pitocin is now at 17 milliunits, not increase further due to episodes of every 1 minute contractions, Q 1-6 minutes, dysfunctional pattern. Contractions no longer uncomfortable, patient sleeping. Pelvic Exam Dilation (cm): 2 Effacement (%): 60 station: -2 Amniotic membrane status: Intact (soft and anterior) Comments: cervix anterior. medium consistency Contractions Contractions on admission: irregular (1-6 minutes) Contraction frequency (min): 2 Contraction pattern: Regular ( q 2-3 min) Contraction intensity: Mild Status status: Category l (occas variable) Monitor Accelerations: Present Monitor Decelerations: Absent Monitor Variability: Moderate Assessment and Plan Assessment: induction ongoing Plan: other Comments: Discussed with the patient stopping the Pitocin and doing a prostaglandins again for further cervical ripening, since she is not responding to the Pitocin. Discussed misoprostol with her. She agrees to turning off the Pitocin and doing the misoprostol. Need await at least 1 hour, longer if contractions still closed. Then will give misoprostol 25mcg orally as first dose. Continue labetalol 100 mg p.o. b.i.d.. BP's overall controlled, only mild elevations.
[2022-06-11] MEDS: miSOPROStoL 25 MCG TABLET PO (15:12)
--- NOTE | 2022-06-11 19:14 | PM.OBPNLAB ---
Date/Time Date Patient Seen: 06/11/22 Time Patient Seen: 19:14 Pain Control Pain control: tolerating well Comments: Not feeling any contractions. She denies headache, vision changes, nausea or abdominal pain Pelvic Exam Dilation (cm): 2 Effacement (%): 60 station: -2 Amniotic membrane status: Intact (soft and anterior) Comments: Cervix not reach checked. She was having some frequent low-grade irritability, now contractions space to rare Contractions Contraction pattern: Absent (rare) Contraction intensity: Mild Status status: Category l (occas variable) Heart Rate Baseline: 140 Monitor Accelerations: Present Monitor Decelerations: Absent Monitor Variability: Moderate Comments: Exam: Afebrile BP 128-142/64-95 General: Well-appearing female in no acute distress Abdomen: Gravid, nontender Extremities: 1+ pedal edema. DTR: 1+ patellar reflex, no clonus Assessment and Plan Assessment: induction ongoing Comments: EGA 37wk2d, preeclampsia. BPs only with some mild elevations Will give 50 mcg oral for 2nd dose misoprostol @ 1915 Penicillin stopped for GBS prophylaxis when Pitocin stopped. Restart when she develops labor.
[2022-06-11] MEDS: miSOPROStoL 25 MCG TABLET 50 MCG PO ×2 (19:32→23:37)
[2022-06-11 20:58] VITALS: BP 177/112; PULSE 78
[2022-06-11 21:20] VITALS: BP 164/99; PULSE 88
[2022-06-11 21:21] VITALS: BP 162/100; PULSE 72
[2022-06-11] MEDS: LABETALOL 20 MG/4 ML SYRINGE IV (21:21)
[2022-06-11 21:59] VITALS: BP 144/85; PULSE 77
[2022-06-12] VITALS (9 sets, daily range): BP systolic 114–166; BP diastolic 77–95; PULSE 58–91; RESP 16–18; TEMP 36.2; O2SAT 97–98
[2022-06-12] MEDS: LABETALOL 20 MG/4 ML SYRINGE IV (00:48)
[2022-06-12] MEDS: MAGNESIUM SULFATE 4 GM/100 ML PIGGYBACK IV (00:49)
--- NOTE | 2022-06-12 01:18 | P.PNOB_ITS ---
Date/Time Date Patient Seen: 06/12/22 Pain Control Comments: Nursing calling with severe range BP. Patient with elevated BP 162/100, 164/99, 176/108, prior to her scheduled Labetolol. She was given 20 mg IV labetalol and her oral labetalol was increased from 100 mg to 200 mg. I had ch ecked her DTRs 2 hours prior, only 1+, no clonus 2 hours after additional 100 mg Labetalol she has a repeat elevated BP 179/108, repeat 166/93. Per nursing she still denies headache, scotomata, nausea or abdominal pain. She is not feeling any contractions. Only has rare contraction on the monitor. Pelvic Exam Effacement (%): 60 station: -2 Amniotic membrane status: Intact (soft and anterior) Contractions Date/Time contractions began: rare contraction Contraction pattern: Absent (rare) Contraction intensity: Mild Status status: Category l (occas variable) Heart Rate Baseline: 135 Monitor Accelerations: Present Monitor Decelerations: Absent Monitor Variability: Moderate Assessment and Plan Assessment: induction ongoing Plan: other Comments: Labetalol increased to 200 mg twice daily Will start magnesium sulfate due to 2nd severe range BP, preeclampsia with se ketan features. Mg level in 6 hours with her repeat preeclamptic labs Continue misoprostol for cervical ripening, s/p recent 50 mcg oral dose. resart PCN for GBS prophylaxis when developed labor
[2022-06-12] MEDS: MAGNESIUM SULFATE 20 GM/500 ML IV.SOLN IV ×3 (01:33→16:00)
[2022-06-12] MEDS: miSOPROStoL 25 MCG TABLET 50 MCG PO (03:38)
[2022-06-12] MEDS: LACTATED RINGERS 1,000 ML 100 ML IV ×2 (03:54→08:41)
[2022-06-12] MEDS: PENICILLIN G POTASSIUM 3,000,000 UNIT/50 ML FROZ.PIGGY 100 UNIT IV ×2 (05:36→09:33)
[2022-06-12 06:55] LABS: Hematocrit 33.6 % (36-46); Hemoglobin 11.5 g/dL (12.0-16.0); Mean Corpuscular HGB Conc 34.2 % (30-36); Mean Corpuscular Hemoglobin 29.6 PG (26-34); Mean Corpuscular Volume 86.6 fL (80-100); Platelet Count 150 X10^3/uL (150-400); Red Blood Cell Count 3.88 X10^6/uL (4.0-5.2); White Blood Cell Count 7.1 X10^3/uL (4.5-11.0)
[2022-06-12 07:11] LABS: Magnesium 5.5 mg/dL (1.6-2.3)
[2022-06-12 07:23] LABS: Alanine Aminotransferase 19 IU/L (<35); Albumin 2.8 g/dL (3.5-5.0); Alkaline Phosphatase 208 U/L (38-126); Aspartate Aminotransferase 31 IU/L (14-36); BUN Creatinine Ratio 16.1 (6-22); Bilirubin Total 0.3 mg/dL (0.2-1.3); Blood Urea Nitrogen 9 mg/dL (7-17); Calcium 7.6 mg/dL (8.4-10.2); Carbon Dioxide 22 mmol/L (22-32); Chloride 104 mmol/L (98-107); Estimated Glomerular Filt Rate > 60 mL/min (>60); Globulin 2.9 g/dL (1.7-4.1); Glucose 81 mg/dL (70-100); HEMOLYSIS < 15 (0-50); Potassium 4.4 mmol/L (3.4-5.1); Sodium 132 mmol/L (137-145); Total Protein 5.7 g/dL (6.3-8.2)
--- NOTE | 2022-06-12 08:42 | PM.AN.REGBLK ---
Regional Block Pre-procedure Procedure: Continuous Lumbar Epidural for L&D Attending OB provider: Dalila Coreas PMH/ROS narrative: preecclampsia with sever features, BP's in have been in severe range, being treated with labetolol, increased to 200mg bid yesterday. AP elevated and rising slowly, platelets WNL, AST/ALT WNL. Pt asymptomatic. Slow progress with induction for preecclampsia, planned AROM this am. ASA Class: III Labs: Hct 33.6 % (36-46) L 06/12/22 06:30 Plt Count 150 X10^3/uL (150-400) 06/12/22 06:30 Medications: Current Medications Generic Name Dose Route Start Last Admin Trade Name Freq PRN Reason Stop Dose Admin Calcium Carbonate 500 mg 06/09/22 19:26 Calcium Carbonate 500 Mg Tab PO Q2HR PRN Dyspepsia Carboprost Tromethamine 250 mcg 06/09/22 19:26 Carboprost 250 Mcg/Ml Ampul IM Q90M PRN Bleeding Fentanyl 50 mcg 06/09/22 19:26 Fentanyl 100 Mcg/2 Ml Inj IV Q1H PRN Pain, Moderate (4-6) Lactated Ringer's 1,000 mls @ 100 mls/hr 06/09/22 19:30 06/12/22 08:41 Lactated Ringers IV 100 mls/hr CONT ROYAL Administration Oxytocin/Lactated Ringer's 30 unit in 500 mls @ 200 mls/hr 06/09/22 19:26 Oxytocin Premix IV CONT PRN Bleeding Protocol Tranexamic Acid 1,000 mg/ 100 mls @ 200 mls/hr 06/09/22 19:26 Sodium Chloride IV NOW PRN Bleeding Penicillin G Potassium 3,000,000 unit in 50 mls @ 100 mls/hr 06/11/22 11:00 06/12/22 05:36 Penicillin G Potassium IV 100 mls/hr Q4H ROYAL Administration Magnesium Sulfate 20 gm in 500 mls @ 50 mls/hr 06/12/22 00:45 06/12/22 01:33 Magnesium Sulfate IV 50 mls/hr CONT ROYAL Administration Labetalol HCl 20 mg 06/10/22 08:40 06/12/22 00:48 Labetalol 20 Mg/4 Ml Syringe IV 20 mg Q4HR PRN Administration Blood Pressure - High Labetalol HCl 200 mg 10/11/22 09:00 Labetalol 100 Mg Tablet PO BID ROYAL Methylergonovine Maleate 0.2 mg 06/09/22 19:26 Methylergonovine 0.2 Mg Tablet PO Q6HR PRN Heavy Bleeding Methylergonovine Maleate 0.2 mg 06/09/22 19:26 Methylergonovine 0.2 Mg/Ml Vial IM NOW PRN Bleeding Misoprostol 800 mcg 06/09/22 19:26 Misoprostol 200 Mcg Tablet OR NOW PRN Bleeding Misoprostol 1,000 mcg 06/09/22 19:26 Misoprostol 200 Mcg Tablet OR NOW PRN Bleeding Misoprostol 400 mcg 06/09/22 19:26 Misoprostol 200 Mcg Tablet SL NOW PRN Bleeding Misoprostol 50 mcg 06/11/22 23:30 06/12/22 03:38 Misoprostol 25 Mcg Tablet PO 50 mcg Q4HR ROYAL Administration Naloxone HCl 0.2 mg 06/09/22 19: Naloxone 0.4 Mg/Ml Vial IV Q2MIN PRN Opiate Reversal Ondansetron HCl 4 mg 06/09/22 19:26 Ondansetron 4 Mg/2 Ml Inj IV Q4HR PRN Nausea And Vomiting Oxytocin 10 unit 06/09/22 19:26 Oxytocin 10 Unit/Ml Vial IM NOW PRN Bleeding Allergies: Allergies Allergy/AdvReac Type Severity Reaction Status Date / Time No Known Drug Allergies Allergy Unverified 06/01/22 14:53 Procedure Insertion date: 06/12/22 Insertion time: 09:00 Prep/Local: betadine x3 and 1% lidocaine Interspace: L3-4 Patient position: sitting Needle: 18 gauge [place] Loss of resistance with: saline RICHIE at (cm): 6 Catheter placed at SKIN (cm): 12 Catheter in SPACE (cm): 6 Insertion: No CSF, No Blood, No Paresthesia with insertion, No Paresthesia with injection and No Test dose reaction Initial Medications TEST DOSE time: 09:02 TEST DOSE: 1.5% lidocaine with epinephrine 1:200k (mL): 3 BOLUS DOSE time: 09:03 BOLUS DOSE (mL): 5 BOLUS DOSE med: other (1% ropivacaine) Infusion INFUSION: 0.125% bupivacaine and with fentanyl 2 mcg/mL Initial rate (mL/hr): 6 Post-procedure Anesthesia time START: 08:50 Anesthesia time END: 13:52 Post-procedure Anesthesia Assessment: Yes CV function: HR/BP stable, Yes Resp function: RR/sat/airway adequate, Yes Mental status appropriate and No Anesthesia complications
[2022-06-12] MEDS: LABETALOL 100 MG TABLET 200 MG PO (08:43)
[2022-06-12] MEDS: FENT 2MCG/ML BUPIV 0.125% EPI 200 MCG/100 ML PLAST..BAG 6 MCG EPIDURAL (09:10)
[2022-06-12] MEDS: OXYTOCIN PREMIX 30 UNIT/500 ML PLAST..BAG IV (09:20)
--- NOTE | 2022-06-12 13:27 | SUR.OPER ---
Supine on Padded OR bed, head on pillow, safety belt at thigh, arms secured on padded arm boards at <90 degrees abduction. Bump under right buttock. Legs uncrossed with pillow under knees, gel pad to heels, tape over blanket to lower legs.
--- NOTE | 2022-06-12 13:28 | PM.OBPNLAB ---
Date/Time Date Patient Seen: 06/12/22 Time Patient Seen: 08:00 Pain Control Pain control: tolerating well Comments: Patient is a 22-year-old 1 para 0 at 37-,2/7 weeks gestation who presented on Saturday with preeclampsia. She received Cervidil for cervical ripening from Saturday evening to Saturday. She was started on Pitocin on send the evening and continued until Saturday morning. Last evening she had severe range blood pressures and was started on magnesium sulfate. Pelvic Exam Dilation (cm): 2 Effacement (%): 75 station: -2 Amniotic membrane status: Intact (soft and anterior) Contractions Contractions on admission: none Monitor mode: External Contraction pattern: Absent (rare) Contraction intensity: Mild Status status: Category l (occas variable) Heart Rate Baseline: 135 Monitor Accelerations: Present Monitor Decelerations: Absent Monitor Variability: Moderate Assessment and Plan Assessment: induction ongoing Comments: Begin Pitocin Artificial rupture of membranes once second dose of antibiotics for group B strep prophylaxis has been administered
--- NOTE | 2022-06-12 13:29 | PM.OBPNLAB ---
Date/Time Date Patient Seen: 06/12/22 Time Patient Seen: 13:29 Pain Control Pain control: epidural Pelvic Exam Dilation (cm): 3 Effacement (%): 85 station: -1 Amniotic membrane status: Ruptured (soft and anterior) Contractions Contractions on admission: none Monitor mode: External Pitocin rate (mU/min): 10 Contraction frequency (min): 3 Contraction pattern: Regular (rare) Contraction intensity: Mild Status status: Category ll (occas variable) Heart Rate Baseline: 135 Monitor Accelerations: Present Monitor Decelerations: Late Monitor Variability: Minimal Assessment and Plan Assessment: induction ongoing Comments: Discussed with patient and her family that she may be 12-18 hours away from delivery and that baby is starting to show signs of stress. We discussed that the best course of action would be to proceed with a primary low-transverse section. The risks, benefits, and alternatives to the procedure were explained to the patient. The risks including bleeding, infection, injury to the bowel, bladder, or ureters. She understands these risks and agrees to proceed. A full par Q was held and consent form was signed.
--- NOTE | 2022-06-12 13:40 | PM.PREOP ---
Pre-operative Note COVID-19 COVID-19 status: Negative Result date/Date tested (Pos, Neg/Pending): 06/09/22 Criteria for continued procedure: Non-surgical alternatives not available or appropriate per current SOC Interval Note History & Physical reviewed/Exam performed by Physician: Yes Changes to H&P: No H&P completed within 30 days and has changed as indicated here:: 06/09/22
[2022-06-12] MEDS: CITRIC ACID/SODIUM CITRATE 15 ML SOLUTION 30 ML PO (13:46)
[2022-06-12] MEDS: CEFAZOLIN 2 GM/100 ML PREMIX 100 ML IV (13:53)
--- NOTE | 2022-06-12 14:26 | SUR.OPER ---
viable baby boy born at 1416, FHT prior to incsion 110, cord blood and placenta sent to OB with OB RN, 04/10
[2022-06-12] MEDS: ACETAMINOPHEN IV 1,000 MG/100 ML VIAL 400 MG IV (14:38)
[2022-06-12] MEDS: BUPIVACAINE 0.5% (PF) VIAL 30 ML INJ (14:41)
--- NOTE | 2022-06-12 15:34 | P.OP_ITS ---
Operative Date/Time/Diagnoses Date of procedure: 06/12/22 Time of procedure: 15:34 Pre-op diagnosis: 37-2/7 weeks gestation Severe preeclampsia intolerance of labor Post-op diagnosis: same Procedure & Clinicians Procedure: Primary low-transverse section Same procedure as scheduled: Yes Indications: 37-,2/7 weeks gestation Severe preeclampsia intolerance of labor Surgeon: Dalila Hermosillo Yes if Unassisted: No Wedding Florist: Julia Acosta Reason for Wedding Florist: The human services assistant was necessary to retract upon entry into the abdomen in uterus. She assisted with fundal pressure in delivery of the . She assisted with retraction, clipping of suture, and closure of the contralateral fascia upon closure. Anesthesia Type: Epidural (With Duramorph) Operative Notes Findings: Live male infant in the L OT presentation Normal uterus, tubes, and ovaries Closure Type: primary Specimen(s): cord blood, cord pH and placenta Intraoperative meds administered: Duramorph, Ketorolac and Pitocin Applied: Catheter (To continuous drainage) Estimated Blood Loss (mL): 500 Blood products transfused: none Procedure in detail: The patient was taken to the operating room where she was placed in the dorsal supine position with a leftward tilt. She was prepped and draped in the usual sterile fashion. A timeout was performed. After epidural analgesia was found to be adequate, a Pfannenstiel skin incision was made 2 fingerbreadths above the pubic symphysis and carried through to the underlying layer fascia. The fascia was nicked in the midline, and the incision extended bilaterally with the Poole scissors. The superior aspect of the fascial incision was grasped with a Roberts clamps, elevated, and the underlying rectus muscles dissected off sharply and bluntly. Attention was then turned to the inferior aspect of this incision which in a similar fashion was grasped with a Roberts clamps, elevated, and the underlying rectus muscles dissected off sharply and bluntly. The rectus muscles were in the midline. The peritoneum was identified, grasped between 2 hemostats, and entered sharply with the Metzenbaum scissors. This incision was extended superiorly and inferiorly with good visualization of the bladder. The bladder blade was inserted. The vesicouterine peritoneum was identified, gra sped with the pickup, and entered sharply with the Metzenbaum scissors. This incision was extended bilaterally, and the bladder flap was created digitally. The bladder blade was reinserted. The lower uterine segment was incised in a transverse fashion with the scalpel. Upon entering the amniotic sac there was a small amount of clear amniotic fluid. The infant's head was delivered with vacuum assistance. The nose and mouth were suctioned with bulb suction. The remainder of the body delivered without difficulty. The cord was double clamped and cut after 1 minute. The was handed off to waiting RN and RT. The placenta was expressed. The uterus was cleared of all clots and debris. The uterine incision was repaired with #1 chromic in a running interlocking fashion, and a second layer the same suture was used for an imbricating layer. The stasis was achieved. The tubes and ovaries were examined and were found to be normal. The gutters were cleared of all clots and debris. The bladder flap was reapproximated using 2-0 Vicryl in a running fashion. The parietal peritoneum was closed using 2-0 Vicryl in a running fashion. The fascia was reapproximated using 0 Vicryl in a running fashion. The subcutaneous layer was copiously irrigated with warm normal saline. 5 simple interrupted sutures of 3-0 Vicryl were placed to reapproximate the subcutaneous layer. The skin was closed with 4-0 Monocryl in a subcuticular fashion. Steri-Strips were placed. An Aquacel dressing was placed. The uterus was expressed of a small amount of old blood. Sponge, lap, and instrument counts were correct x-2. The patient tolerated the procedure well, and was taken to PACU in stable condition. Complications: none [place] Baby 1: Infant Gender: Male Presentation: vertex Position: Left Occiput Transverse Placental Delivery Description: Expressed Cord Vessel Description: 3 Vessels and Clamped/Cut (After 1 minute) score (1 min): 8 score (5 min): 9 weight: 5 lb 14 oz Post-operative Condition: stable Disposition: PACU Aftercare: routine postop
[2022-06-12] MEDS: LACTATED RINGERS 1,000 ML 25 ML IV (16:00)
[2022-06-12] MEDS: ACETAMINOPHEN 325 MG TABLET 650 MG PO (19:29)
[2022-06-12] MEDS: KETOROLAC 30 MG/ML VIAL IV (20:30)
[2022-06-12 23:12] LABS: Magnesium 4.8 mg/dL (1.6-2.3)
[2022-06-13] MEDS: ACETAMINOPHEN 325 MG TABLET 650 MG PO ×3 (01:42→18:56)
[2022-06-13] MEDS: KETOROLAC 30 MG/ML VIAL IV ×2 (02:46→10:00)
[2022-06-13] MEDS: OXYCODONE IR 5 MG TABLET PO ×4 (04:38→23:42)
[2022-06-13 06:36] LABS: Add Manual Diff / Slide Review NO; Basophils Absolute Auto 0 /uL (0-100); Basophils Percent Auto 0.2 % (0-2); Eosinophils Absolute Auto 100 /uL (0-450); Eosinophils Percent Auto 1.1 % (2-4); Hematocrit 25.7 % (36-46); Lymphocytes Absolute Auto 1700 /uL (1100-4500); Lymphocytes Percent Auto 20.4 % (25-40); Mean Corpuscular HGB Conc 34.9 % (30-36); Mean Corpuscular Hemoglobin 30.4 PG (26-34); Monocytes Absolute Auto 600 /uL (0-900); Monocytes Percent Auto 7.5 % (3-14); Neutrophils Absolute Auto 5900 /uL (1500-7000); Neutrophils Percent Auto 70.8 % (50-75); Platelet Count 141 X10^3/uL (150-400); Red Blood Cell Count 2.95 X10^6/uL (4.0-5.2); Red Cell Distribution Width 14.6 % (11.6-14.8); White Blood Cell Count 8.3 X10^3/uL (4.5-11.0)
[2022-06-13 06:39] LABS: Alanine Aminotransferase 16 IU/L (<35); Albumin 2.3 g/dL (3.5-5.0); Albumin Globulin Ratio 0.9 (1.0-2.8); Alkaline Phosphatase 137 U/L (38-126); Aspartate Aminotransferase 30 IU/L (14-36); BUN Creatinine Ratio 13.7 (6-22); Bilirubin Unconjugated 0.1 mg/dL (0.0-1.1); Blood Urea Nitrogen 10 mg/dL (7-17); Calcium 6.7 mg/dL (8.4-10.2); Carbon Dioxide 26 mmol/L (22-32); Chloride 100 mmol/L (98-107); Estimated Glomerular Filt Rate > 60 mL/min (>60); Globulin 2.5 g/dL (1.7-4.1); Glucose 101 mg/dL (70-100); HEMOLYSIS < 15 (0-50); Potassium 4.5 mmol/L (3.4-5.1); Sodium 130 mmol/L (137-145); Total Protein 4.8 g/dL (6.3-8.2)
[2022-06-13 06:40] LABS: Bilirubin Total < 0.1 mg/dL (0.2-1.3)
[2022-06-13] MEDS: DOCUSATE 100 MG CAPSULE 200 MG PO (09:59)
[2022-06-13] MEDS: PRENATAL VIT,CALC/IRON/FOLIC 1 TABLET 1 TAB PO (09:59)
[2022-06-13 10:00] VITALS: BP 126/63; PULSE 70
[2022-06-13] MEDS: LABETALOL 100 MG TABLET 200 MG PO ×2 (10:00→21:33)
[2022-06-13] MEDS: MAGNESIUM SULFATE 20 GM/500 ML IV.SOLN IV (10:08)
[2022-06-13 14:23] VITALS: BP 111/72; PULSE 70
--- NOTE | 2022-06-13 18:42 | P.PNOB_ITS ---
Subjective - OB Subjective Patient comments: no complaints, pain well controlled and tolerating diet baby status: doing well and nursing well feeding status: exclusively breast feeding Date Patient Seen: 06/13/22 Time Patient Seen: 08:25 Interval history: Postop day # 1 status post primary low-transverse section for intolerance of labor. Severe preeclampsia on magnesium sulfate 1 gram/hour. Wong catheter still in place. Exam Vital Signs (past 8 hours): - 06/13/22 14:23 Pulse Rate 70 Blood Pressure 111/72 Oxygen Delivery Method Room Air Narrative Exam Narrative: Generally: Patient is sitting up in chair, nursing , no acute distress Lungs: Clear to auscultation bilaterally Cardiovascular: Regular rate and rhythm Fundus: Firm at U -1 Incision: Clean dry and intact with Aquacel dressing Extremities: 2+ edema to the knees Objective Labs Result Diagrams: 06/13/22 06:16 06/13/22 06:16 Labs: Laboratory Results - last 24 hr 06/12/22 06/13/22 06/13/22 22:45 06:16 06:16 WBC 8.3 RBC 2.95 L Hgb 9.0 L Hct 25.7 L MCV 87.0 MCH 30.4 MCHC 34.9 RDW 14.6 Plt Count 141 L Neut % (Auto) 70.8 Lymph % (Auto) 20.4 L [place] % (Auto) 7.5 Eos % (Auto) 1.1 L Baso % (Auto) 0.2 Neut # (Auto) 5900 Lymph # (Auto) 1700 [place] # (Auto) 600 Eos # (Auto) 100 Baso # (Auto) 0 Sodium 130 L Potassium 4.5 Chloride 100 Carbon Dioxide 26 BUN 10 Creatinine 0.73 Estimated GFR > 60 BUN/Creatinine Ratio 13.7 Glucose 101 H Calcium 6.7 L Magnesium 4.8 H Total Bilirubin < 0.1 L Conjugated Bilirubin 0.0 Unconjugated Bilirubin 0.1 AST 30 ALT 16 Alkaline Phosphatase 137 H Total Protein 4.8 L Albumin 2.3 L Globulin 2.5 Albumin/Globulin Ratio 0.9 L Assessment & Plan Plan day: 1 Comments: Discontinue magnesium sulfate at 2:00 p.m. Discontinue Wong catheter after magnesium sulfate. Ambulate Elevate legs Time Spent With Patient Time: Total time spent is greater than 50% in coordination of care (as documented) at patient's floor/unit and/or counseling patient: Time with patient: 15-24 minutes
[2022-06-13] MEDS: IBUPROFEN 600 MG TABLET PO (18:55)
[2022-06-13 19:57] VITALS: BP 132/89; PULSE 74; RESP 20; TEMP 36.8; O2SAT 99
[2022-06-13 21:33] VITALS: BP 134/90; PULSE 76
[2022-06-13] MEDS: MAG HYDROX/ALUM/SIMETH 30 ML UDC PO (21:39)
[2022-06-14] MEDS: ACETAMINOPHEN 325 MG TABLET 650 MG PO ×2 (01:08→07:09)
[2022-06-14] MEDS: IBUPROFEN 600 MG TABLET PO ×2 (01:09→07:08)
[2022-06-14 01:15] VITALS: BP 119/73; PULSE 73
[2022-06-14] MEDS: OXYCODONE IR 5 MG TABLET PO ×2 (04:56→12:40)
[2022-06-14] MEDS: LABETALOL 100 MG TABLET 200 MG PO (10:29)
[2022-06-14] MEDS: DOCUSATE 100 MG CAPSULE 200 MG PO (10:29)
[2022-06-14] MEDS: PRENATAL VIT,CALC/IRON/FOLIC 1 TABLET 1 TAB PO (10:30)
--- NOTE | 2022-06-24 20:57 | P.DS_ITS ---
Discharge Providers Provider Date of admission: 06/09/22 16:34 Discharge Date: 06/14/22 Primary care physician: Dora Crow MD Consults: 06/12/22 15:48 Consult to [employer] Manager Routine Comment: Discharge provider: Dalila Coreas MD Summary Hospital Course Date Patient Seen: 06/14/22 Time Patient Seen: 07:30 Diagnoses: Thirty-seven weeks gestation Severe preeclampsia Cervical ripening with Cervidil and misoprostol Induction of labor with Pitocin Artificial rupture of membranes Epidural analgesia intolerance of labor Magnesium sulfate Primary low-transverse section Hospital Course: Patient is a 22-year-old 1 para 1 who was admitted on June 09, 2022 for cervical ripening/induction of labor due to elevated blood pressure and proteinuria. On June 10, 2022 she had cervical ripening with Cervidil. Later that evening, low-dose Pitocin was started. On the morning of 06 11 the Pitocin was stopped and she was given Cytotec orally. She continued to have elevated blood pressures and received nifedipine and labetalol. She was started on magnesium sulfate. On June 12, 2022 artificial rupture of membranes was performed after the second dose of group B strep prophylaxis. She received an e pidural for pain management. When patient had progressed to 3 cm, there were late decelerations. She underwent a primary low-transverse section without complication. Magnesium sulfate was continued for 24 hours after the delivery. She was discharged home on postop day # 2. She was to follow-up at 1 week for a blood pressure check and incision check. Peripartum Data Infant Delivery Method: Section Laceration Description: None Episiotomy description: None Procedures: Cervidil and misoprostol cervical ripening Pitocin induction of labor Artificial rupture of membranes Group B strep prophylaxis Epidural analgesia Primary low-transverse section Magnesium sulfate IV complications: none [place] 1: Gender: Male Disposition of : home Status at Discharge Cognitive/behavioral status at discharge: oriented Functional status at discharge: independent ambulation Overall status at discharge: patient is progressing back to baseline Time Spent with Patient Time attestation: Total time spent providing and/or coordinating discharge services: Time spent: Less than 30 minutes Objective Labs Result Diagrams: 06/13/22 06:16 06/13/22 06:16 Exam Vital Signs (past 8 hours): Oxygen Delivery Method Room Air Narrative Exam Narrative: Generally: Patient is sitting up in bed, nursing , no acute distress Lungs: Clear to auscultation bilaterally Cardiovascular: Regular rate and rhythm Fundus: Firm at U -1 Incision: Clean dry and intact with Aquacel dressing Extremities: 1+ edema to the knees, 1+ DTRs, negative Homans Discharge Plan Discharge Plan Patient Disposition: Home Provider Discharge Comment: Call with fever, chills, redness or drainage around the incision, or bleeding vaginally more than a pad in an hour Tylenol 650 mg every 6 hours as needed Ibuprofen 600 mg every 6 hours as needed Stool softener until bowels returned to normal Continue vitamins Push IV fluids Discharge orders & Medications Prescriptions: New ibuprofen 600 mg tablet 600 mg PO Q6H PRN (Reason: pain) Qty: 30 2RF docusate sodium [Colace] 100 mg capsule 100 mg PO BID Qty: 20 3RF oxycodone 5 mg tablet 5 mg PO Q4H PRN (Reason: pain) Qty: 20 0RF Continued prenat.vits,piero,[id number] Tablet 1 tab PO DAILY Follow up/Referrals: Dalila Coreas MD [Physician] - 1 Week (1 week Aquacel removal: @ 2:45pm w/ Dr. Coreas 6 wk PP visit: July 23 @ 2:30pm w/ Dr. Coreas) Diet/Activity/Treatments Diet: Regular Activity: No heavy lifting Skin/Wound/Dressing Care Report to your healthcare provider any signs of infection, such as:: chills, fever, increased pain, unusual drainage and unusual redness Dressing: Do not remove Visit Report/Discharge Packet Instructions: DI for , DI for Prescription Opioid Use Discharge Data Primary Care Provider: Dora Crow
== END 2022-06-14 12:40 | disposition home or self-care (01) | DRG 788 ==
PROVIDERS: Obstetrics & Gynecology; Admitting Provider Obstetrics & Gynecology; PCP Internal Medicine; Referring Provider Obstetrics & Gynecology; Visit Provider Obstetrics & Gynecology
PROC: 10D00Z1 Extraction of Products of Conception, Low, Open Approach (ICD-10-PCS; CPT 59514; principal; 2022-06-12 14:00)
DX: O14.14 Severe pre-eclampsia complicating childbirth (principal); Z3A.37 37 weeks gestation of pregnancy; Z37.0 Single live birth; O99.824 Streptococcus B carrier state complicating childbirth; Z20.822 Contact with and (suspected) exposure to COVID-19
CPT/HCPCS: 01967; 01968; 36415; 59050; 59200; 59510; 59514; 80048; 80053; 80076; 82570; 83735; 84156; 84550; 85025; 85027; 86850; 86900; 86901; 87635; C9803; G0379; J0131; J0690; J1885; J2274; J2540; J2590; J2704; J3010; J3475